=== PATIENT | male | born 1950 | race African-American/Black ===

== ENCOUNTER 2017-08-07 17:44 | Emergency (ER) | payer MEDICARE, BC ==
[2017-08-07] MEDS ORDERED: HYDROcodone/APAP 5/325MG 1 TAB TABLET PO (18:15)
[2017-08-07] MEDS: IBUPROFEN 800 MG TABLET. PO (18:30)
== END 2017-08-07 19:40 | disposition home or self-care (01) ==
LOC: ER 17:44
DX: M79.662 Pain in left lower leg (principal); M79.661 Pain in right lower leg; M79.1 Myalgia; E78.00 Pure hypercholesterolemia, unspecified; F17.210 Nicotine dependence, cigarettes, uncomplicated
CPT/HCPCS: 93970; 99284-25

== ENCOUNTER 2019-08-12 15:48 | Emergency (ER) | payer BC, MEDICARE ==
[~2019-08-12] VITALS: Ht 175.3 cm; Wt 59.0 kg
--- NOTE | 2019-08-12 15:56 | PHYS DOC ---
Past Medical History Past Medical History: Cancer, High Cholesterol Additional Past Medical Histor: Cancer of the stomach Past Surgical History: Cancer Surgery Additional Past Surgical Histo: partial stomach removal Smoking Status: Current Every Day Smoker Alcohol Use: Occasionally Drug Use: None General Adult HPI: HPI: 69-year-old male past medical history significant for hypertension, hyperlipidemia and alcohol abuse, presents to the ED with complaints of bilateral lower extremity "cramping" for the past 2 weeks to a month. EMS reports patient's house is her condition but patient told that he was outside for a while today. Pt reports sister called 911 because he "fell" forward due to the pain. Patient denies any recent alcohol or drug use including methamphetamine or cocaine. Denies blunt head injury/LOC. No prior history of DVT or PE, no recent hospitalization or surgery. Review of systems: Denies associated fever, chills, headache, neck stiffness, cough, dyspnea, cough, chest pain, nausea, vomiting, blurry vision, neurologic deficits, abdominal pain, back pain, unilateral leg swelling, rash. Review of Systems: Review of Systems: Constitutional: Denies fever or chills. [] Eyes: Denies change in visual acuity. [] HENT: Denies nasal congestion or sore throat. [] Respiratory: Denies cough or shortness of breath. [] Cardiovascular: Denies chest pain or edema. [] GI: Denies abdominal pain, nausea, vomiting, bloody stools or diarrhea. [] : Denies dysuria. [] Musculoskeletal: Denies back pain or joint pain. [] Integument: Denies rash. [] Neurologic: Denies headache, focal weakness or sensory changes. [] Endocrine: Denies polyuria or polydipsia. [] Lymphatic: Denies swollen glands. [] Psychiatric: Denies depression or anxiety. [] Allergies: Allergies: Allergies Coded Allergies Type Severity Reaction Last Updated Verified No Known Drug Allergies 03/31/13 No Physical Exam: PE: Constitutional: Well developed, well nourished, no acute distress, non-toxic appearance, thin, suspect intoxicated -no obvious smell HENT: Normocephalic, atraumatic, bilateral external ears normal, oropharynx moist, no oral exudates, nose normal, no signs of head trauma Eyes: PERRLA, EOMI, conjunctiva normal, no discharge. [] Neck: Normal range of motion, no tenderness, supple, no stridor. [] Cardiovascular:Heart rate regular rhythm, no murmur [] Lungs & Thorax: Bilateral breath sounds clear to auscultation [] Abdomen: Bowel sounds normal, soft, no tenderness, no masses, no pulsatile masses. [] Skin: Warm, dry, no erythema, no rash. [] Back: No tenderness, no CVA tenderness. [] Extremities: No tenderness, no cyanosis, no clubbing, ROM intact, no edema. [] Neurologic: Alert and oriented X 3, normal motor function, normal sensory function, no focal deficits noted. Psychologic: Affect normal, judgement normal, mood normal. [] EKG: EKG: [] Radiology/Procedures: Radiology/Procedures: [] Impression: Concern for bilateral calf cramps in the setting of alcohol intoxication with transaminitis (appropriate for alcohol abuse). Patient afebrile with no leukocytosis. Is hemodynamically stable. Has no signs of trauma or IQF-qjfn-waljhkstdix processes considered but are low suspicion at this time. Encouraged alcohol cessation, MV/folic acid and PMD follow-up. Patient with steady gait and medical decision-making capacity at time of discharge. Sister called and will pick pt up. Strict ED return precautions given for severe headaches or neurologic deficits. All patient's questions were answered and he was stable at time of discharge. Course & Med Decision Making: Course & Med Decision Making Pertinent Labs and Imaging studies reviewed. (See chart for details) [] Dragon Disclaimer: Dragon Disclaimer: This electronic medical record was generated, in whole or in part, using a voice recognition dictation system. Departure Departure Impression: Primary Impression: Muscle cramps Additional Impression: Alcohol intoxication Disposition: 01 HOME, SELF-CARE Condition: STABLE Referrals: NO PCP (PCP) Patient Instructions: Alcohol Intoxication, Muscle Cramps Justicifation of Admission Dx: Justifications for Admission: Justification of Admission Dx: N/A SANCHO FREIRE DO Aug 12, 2019 15:56
[2019-08-12] MEDS ORDERED: METHOCARBAMOL 750 MG TABLET PO PRN (16:00)
[2019-08-12 16:17] LABS: BASO % 1 % (0-3); EOS # 0.2 x10^3/uL (0.0-0.7); EOS % 6 % (0-3); HEMATOCRIT 40.7 % (39.0-53.0); HEMOGLOBIN 13.9 g/dL (13.0-17.5); LYMPH # 1.6 x10^3/uL (1.0-4.8); LYMPH % 47 % (24-48); MEAN CORPUSCULAR HEMOGLOBIN 32 pg (25-35); MEAN CORPUSCULAR HGB CONC 34 g/dL (31-37); MEAN CORPUSCULAR VOLUME 92 fL (79-100); MONO # 0.4 x10^3/uL (0.0-1.1); MONO % 11 % (0-9); NEUT # 1.2 x10^3/uL (1.8-7.7); NEUT % 35 % (31-73); PLATELET COUNT 115 x10^3/uL (140-400); RED BLOOD COUNT 4.42 x10^6/uL (4.30-5.70); WHITE BLOOD COUNT 3.4 x10^3/uL (4.0-11.0)
[2019-08-12 16:22] LABS: CALCIUM 8.2 mg/dL (8.5-10.1); CREATININE 1.3 mg/dL (0.7-1.3); GFR 66.6; POTASSIUM 4.3 mmol/L (3.5-5.1)
[2019-08-12 16:30] LABS: ALBUMIN 3.5 g/dL (3.4-5.0); ALBUMIN/GLOBULIN RATIO 0.7 (1.0-1.7); TOTAL BILIRUBIN 0.4 mg/dL (0.2-1.0); TOTAL PROTEIN 8.5 g/dL (6.4-8.2)
[2019-08-12 16:51] VITALS: BP 125/72
== END 2019-08-12 17:20 | disposition home or self-care (01) ==
LOC: ER 15:48
DX: R25.2 Cramp and spasm (principal); F10.229 Alcohol dependence with intoxication, unspecified; Y90.8 Blood alcohol level of 240 mg/100 ml or more; E78.00 Pure hypercholesterolemia, unspecified; E78.5 Hyperlipidemia, unspecified; I10 Essential (primary) hypertension; F17.200 Nicotine dependence, unspecified, uncomplicated
CPT/HCPCS: 36415; 80053; 82550; 85025; 99283; G0480

== ENCOUNTER 2020-04-02 10:43 | Day surgery (SDC) | payer MEDICARE ==
[~2020-04-02 10:43] MED LIST: AMLO-186 PO; ATOR40TA59 PO; BUPR150T7 PO; CHOL500050 PO; HYDROmorphone 2 MG/ML VIAL IVP PRN; IV RINGERS,LACTATED 1000ML 1,000 ML IV SCH; MORPHINE SULFATE 2 MG/ML VIAL. IVP PRN; PROCHLORPERAZINE 10 MG/2 ML VIAL. IVP PRN; fentaNYL PF VIAL 100 MCG/2 ML VIAL IVP PRN
[2020-04-02] MEDS ORDERED: GELATIN SPONGE SIZE 12-7MM SPONGE. ONE ×3 (11:14→11:18)
[2020-04-02] MEDS ORDERED: LIDOCAINE 2%/EPI 1:100,000 20 ML VIAL. ONE (11:18)
[2020-04-02] MEDS ORDERED: EPINEPHrine VIAL 30 MG/30 ML VIAL ONE (11:18)
[2020-04-02] MEDS ORDERED: fentaNYL PF VIAL 100 MCG/2 ML VIAL ONE (11:45)
[2020-04-02] MEDS ORDERED: LIDOCAINE 2% PF 5 ML VIAL. ONE (11:45)
[2020-04-02] MEDS ORDERED: PROPOFOL 10 MG/ML (20ML) VIAL. IV ONE ×2 (11:45→13:21)
[2020-04-02] MEDS ORDERED: DEXAMETHASONE SOD PHOS 4 MG/ML VIAL ONE ×3 (13:14→13:55)
[2020-04-02] MEDS ORDERED: SEVOFLURANE 16 TO 30 MINUTES. IH ONE (13:14)
[2020-04-02] MEDS ORDERED: ONDANSETRON PF 4 MG/2 ML VIAL. ONE (13:17)
[2020-04-02] MEDS ORDERED: PHENYLEPHRINE in 0.9% NACL PF 1 MG/10 ML SYRINGE. IV ONE (13:23)
[2020-04-02] MEDS ORDERED: GLYCOPYRROLATE 1 MG/5 ML VIAL. ONE (13:56)
--- NOTE | 2020-04-02 14:17 | PDOC4 ---
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 Venecia Elise Forest[employer] Biology Specialist none Anesthesiologist Dr. Ruth Anesthesia Type: General Blood Loss < 5mL Specimens Obtained right pyriform sinus-- frozen section confirmed SCCA; Right neck mass FNA slides Findings 1. Large 4 cm right neck mass, level 2; 2. Exophytic mass extending from medial aspect of right pyriform sinus superiorly, exophytic component hangs over airway, but not obstructive Complications none Operative Note Dictation #[id number] VENECIA ELISE MD Apr 02, 2020 14:17
[2020-04-02 14:41] VITALS: BP 160/85
--- NOTE | 2020-04-02 15:44 | OP ---
DATE OF SURGERY: 04/02/2020 PREOPERATIVE DIAGNOSIS: Right pyriform sinus mass and right neck mass. 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 PROCEDURE PERFORMED: Direct laryngoscopy with biopsy and fine needle aspiration of the right neck mass. SURGEON: Venecia Elise MD ANESTHESIA: General endotracheal anesthesia. INDICATIONS FOR SURGERY: The patient is a 69-year-old male with a significant smoking and alcohol history, who presented to the ENT clinic with a rapidly enlarging right neck mass. On fiberoptic laryngoscopy the patient was found to have an exophytic mass extending from the right pyriform sinus that was very concerning for malignancy. The decision was made with the patient to undergo the above procedure. After risks, benefits, and alternatives of surgery were thoroughly discussed with the patient and informed consent was obtained. INTRAOPERATIVE FINDINGS: 1. A large 4 cm right neck mass of the right level 2 area firmly attached to the sternocleidomastoid muscle. 2. An exophytic mass extending from the medial aspect of the right pyriform sinus superiorly, the exophytic component hangs over the airway, but does not extend onto the laryngeal surface of the aryepiglottic fold and is not obstructive of the airway. There was also normal mucosa in the inferior aspect of the pyriform sinus deep to the mass. DESCRIPTION OF THE PROCEDURE: The patient was brought back to room per Anesthesia and intubated with a GlideScope in a standard fashion. On visualization with the GlideScope, they were able to easily manipulate around the mass, but it was exophytic and hanging over the airway slightly on the right lateral aspect. The patient was then turned 90 degrees in the room after the airway was secured. The patient was placed in the sniffing position, on palpation of the base of tongue there was obvious mass. There was a 4 cm mass palpated in the right level 2 neck that was firmly affixed to the sternocleidomastoid musculature. I then used a Dedo laryngoscope to perform a direct laryngoscopy. The patient had normal-appearing mucosa along the oropharynx and base of tongue and epiglottis. The pyriform sinus on the right side had noted an exophytic mass extending from the pyriform surface of the aryepiglottic fold. This was exophytic and highly friable. Along the posterior and lateral border of the pyriform sinus there was normal-appearing mucosa and deep to the mass in the inferior aspect of the pyriform sinus mucosa was also normal in appearance. The postcricoid region also had normal appearance and on the left pyriform sinus had a completely normal in appearance. On visualization of the airway the true vocal cords and false vocal cords themselves were normal and appeared to be mobile, nonfixed. In the laryngeal surface of the aryepiglottic fold also had a normal overlying mucosa. A cup forceps was used to take multiple biopsies of the right medial pyriform sinus mass. I did use this to debulk especially the aspect medially that was extending over the airway to help prevent airway obstruction. These biopsies were taken and sent for frozen pathology and the Dedo laryngoscope was removed without any evidence of trauma to the gingiva. I then prepped the right neck in a standard fashion for fine needle aspiration using a 23-gauge needle, I took 3 passes into the right neck mass for a fine needle aspiration. These slides were then prepared and sent for the pathologist. On frozen section the pyriform sinus mass did confirm a squamous cell carcinoma and the patient's sister was notified at the end of the case of this new diagnosis. The patient was then turned back over to anesthesia after the frozen sections were returned. He was extubated without complication with minimal bleeding noted and no evidence of airway obstruction. Our sponge, needle, instrument counts correct at the end of the case. COMPLICATIONS: None. DISPOSITION: Stable and transferred to the recovery room. VENECIA ELISE MD DR: MEAGAN/patricia JOB#: [id number] / [id number] LJ
--- NOTE | 2020-04-06 14:11 | PATHOLOGY ---
Note [facility] Accession Number: [id number] TESTS RESULT FLAG UNITS REF RANGE LAB Clinician Provided Cytology Information No. of containers..01 Other (Miscellaneous) Source: [A] 01 RIGHT NECK MASS DIAGNOSIS: [A] 02 RIGHT NECK MASS POSITIVE FOR MALIGNANT CELLS. METASTATIC SQUAMOUS CELL CARCINOMA IS PRESENT. Signed out by: 02 Dank Vargas MD, Pathologist NPI- [id number] Performed by: Yohana Romero, Licensed Customs Broker ([facility]) Gross description: 01 3FX 3DQ /LCS 04/03/2020 0858 Local FLAG LEGEND: L-Low Normal,H-High Normal,LL-Alert Low,HH-Alert High <-Panic Low,>-Panic High,A-Abnormal,AA-Critical Abnormal Performed at: [address] [place] [address] Juaquin Baron MD, 02 [address] [address] [place] [address] Dank Vargas MD, Specimen Comment: A courtesy copy of this report has been sent to [phone] Specimen Comment: Report sent to Performed at: [address], [place], [place] [id number] MD Juaquin Baron MD Phone: [phone]
== END 2020-04-02 15:05 | disposition home or self-care (01) ==
LOC: SURG 10:43
PROVIDERS: ATTEND Otolaryngology
DX: R22.1 Localized swelling, mass and lump, neck (principal); D37.05 Neoplasm of uncertain behavior of pharynx; I10 Essential (primary) hypertension; E78.00 Pure hypercholesterolemia, unspecified; F17.210 Nicotine dependence, cigarettes, uncomplicated; Z20.828 Contact with and (suspected) exposure to other viral communicable diseases; Z79.899 Other long term (current) drug therapy; Z98.890 Other specified postprocedural states; Z72.89 Other problems related to lifestyle
CPT/HCPCS: 10021; 31535; 87426; C9803; J1100; J2370; J2405; J2704; J3010; J3490; U0003; J0171

== ENCOUNTER 2020-04-11 08:44 | Emergency (ER) | payer MEDICARE ==
[~2020-04-11] VITALS: Ht 175.3 cm; Wt 59.1 kg
[~2020-04-11 08:44] MED LIST changes: -HYDROmorphone 2 MG/ML VIAL IVP PRN; -IV RINGERS,LACTATED 1000ML 1,000 ML IV SCH; -MORPHINE SULFATE 2 MG/ML VIAL. IVP PRN; -PROCHLORPERAZINE 10 MG/2 ML VIAL. IVP PRN; -fentaNYL PF VIAL 100 MCG/2 ML VIAL IVP PRN
[2020-04-11] MEDS ORDERED: IV NORMAL SALINE 1000ML BAG 1,000 ML IV ONE ×2 (09:15→11:30)
[2020-04-11 10:09] LABS: BASO # 0.1 x10^3/uL (0.0-0.2); BASO % 1 % (0-3); EOS # 0.3 x10^3/uL (0.0-0.7); EOS % 6 % (0-3); HEMATOCRIT 42.9 % (39.0-53.0); HEMOGLOBIN 14.4 g/dL (13.0-17.5); LYMPH # 2.2 x10^3/uL (1.0-4.8); LYMPH % 51 % (24-48); MEAN CORPUSCULAR HEMOGLOBIN 31 pg (25-35); MEAN CORPUSCULAR HGB CONC 34 g/dL (31-37); MEAN CORPUSCULAR VOLUME 92 fL (79-100); MONO # 0.3 x10^3/uL (0.0-1.1); MONO % 8 % (0-9); NEUT # 1.4 x10^3/uL (1.8-7.7); NEUT % 33 % (31-73); PLATELET COUNT 241 x10^3/uL (140-400); RED BLOOD COUNT 4.66 x10^6/uL (4.30-5.70); RED CELL DISTRIBUTION WIDTH 16.4 % (11.5-14.5); WHITE BLOOD COUNT 4.3 x10^3/uL (4.0-11.0)
[2020-04-11 10:16] LABS: CREATININE 1.1 mg/dL (0.7-1.3); GFR 80.8; POTASSIUM 4.3 mmol/L (3.5-5.1)
[2020-04-11 10:21] LABS: ALBUMIN 3.5 g/dL (3.4-5.0); ALBUMIN/GLOBULIN RATIO 0.6 (1.0-1.7); TOTAL BILIRUBIN 0.3 mg/dL (0.2-1.0)
[2020-04-11 10:59] LABS: BILIRUBIN,URINE NEGATIVE (NEG); CLARITY,URINE CLEAR; COLOR,URINE YELLOW; NITRITE,URINE NEGATIVE (NEG); PH,URINE 5.5 (<5.0-8.0); PROTEIN,URINE NEGATIVE (NEG-TRACE); UROBILINOGEN,URINE 0.2 mg/dL (0.2 mg/dL)
[2020-04-11] MEDS ORDERED: IOHEXOL 300 MG/ML 100ML VIAL. IV ONE (11:00)
[2020-04-11 11:04] LABS: BARBITURATES NEG (NEG); BENZODIAZEPINES NEG (NEG); CANNABINOIDS NEG (NEG); COCAINE NEG (NEG); METHADONE NEG (NEG); OPIATES NEG (NEG); PHENCYCLIDINE NEG (NEG)
[2020-04-11 11:09] LABS: AMPHETAMINE/METHAMPHETAMINE NEG (NEG)
--- NOTE | 2020-04-11 11:24 | RAD ---
CT neck with contrast. HISTORY: Right-sided neck mass, trouble swallowing CT scan the neck was done using 70 mL Omnipaque 300 contrast. Sagittal and coronal reconstructed imag es were reviewed. The esophagus is distended with an fluid-filled. The distal esophagus was not evalu ated. There are emphysematous changes in the lungs in the upper lobes. There is mucous in the trachea . Thyroid is homogeneous, there is a tiny 4 mm nodule in the lower thyroid, no further follow-up is w arranted. There is soft tissue fullness or soft tissue mass at the right piriform sinus. There is a large right neck mass consistent with an enlarged lymph node behind the submandibular gla nd medial to the sternocleidomastoid muscle measuring 4.5 x 3 cm. Metastatic head and neck cancer is possible. Lymphoma could have this pattern although the mass is somewhat heterogeneous for a typical lymphoma. Parotid and submandibular glands are unremarkable. Orbits are unremarkable. Sinuses are maria del rosario ar. There are degenerative changes in the cervical spine with degenerative disc disease at several le vels and hypertrophic spurring. There is no acute C-spine fracture. There is mild plaque at the proxi mal carotid artery on the right without significant stenosis. There is mild stenosis of the proximal internal carotid artery on the left. IMPRESSION: 1. Soft tissue mass at the piriform sinus more on the right than on the left. 2. Large mass or enlarged lymph node in the right neck possibly related to metastatic head and neck c ancer, biopsy recommended. 3. Extensive degenerative change in the cervical spine. 4. Distended esophagus, evaluation of the distal esophagus recommended to exclude an esophageal obstr ucting lesion. PQRS Compliance Statement: One or more of the following individualized dose reduction techniques were utilized for this examinat ion: 1. Automated exposure control 2. Adjustment of the mA and/or kV according to patient size 3. Use of iterative reconstruction technique Electronically signed by: Oleksandr Cox MD (04/11/2020 11:22 AM) [facility]
[2020-04-11 11:36] LABS: BACTERIA,URINE 0 /HPF (0-FEW); RBC,URINE 0 /HPF (0-2); WBC,URINE 0 /HPF (0-4)
[2020-04-11 12:14] VITALS: BP 139/67
--- NOTE | 2020-04-11 12:17 | RAD ---
Three-view acute abdominal series. HISTORY: Nausea, vomiting 3 views were taken for an acute abdominal series. Lungs are free of acute infiltrates. Heart is delon l in size. There is blunting of the right costophrenic angle from mild atelectasis or a small pleural effusion. There is no free air on the upright view the abdomen. There are no abnormal air-fluid levels. There i s contrast in the renal collecting systems from the CT neck. There is no dilatation of the renal radha ecting systems. The bladder is mildly distended. There is moderate stool in the right colon. There is no small bowel obstruction. There is mild distention of the colon. IMPRESSION: 1. Possible small right pleural effusion or pleural thickening at the right costophrenic angle. 2. No acute infiltrates in the lungs. 3. Distended bladder. 4. Mild distention of the colon with moderate stool right colon. 5. No small bowel obstruction noted. Electronically signed by: Oleksandr Cox MD (04/11/2020 12:15 PM) [facility]
--- NOTE | 2020-04-11 12:33 | PHYS DOC ---
Past Medical History Past Medical History: Cancer, High Cholesterol, Hypertension Additional Past Medical Histor: Cancer of the stomach AND THROAT Past Surgical History: Cancer Surgery Additional Past Surgical Histo: partial stomach removal Smoking Status: Current Every Day Smoker Alcohol Use: Occasionally Drug Use: None General Adult EDM: Chief Complaint: NECK PAIN HPI: HPI: Patient is a 69 year old male who was brought here from home due to right-sided neck pain. 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 Patient had a biopsy done on April 02, [address] Venecia Bhatti. He was scheduled for PET scan yesterday but he missed the appointment because he was intoxicated. Patient admitted of drinking today as well. Patient denied headache, no trouble swallowing, no no abdominal pain, no nausea vomiting. Review of Systems: Review of Systems: Constitutional: Denies fever or chills. [] Eyes: Denies change in visual acuity. [] HENT: Positive for right-sided neck pain Respiratory: Denies cough or shortness of breath. [] Cardiovascular: Denies chest pain or edema. [] GI: Denies abdominal pain, nausea, vomiting, bloody stools or diarrhea. [] : Denies dysuria. [] Musculoskeletal: Denies back pain or joint pain. [] Integument: Denies rash. [] Neurologic: Denies headache, focal weakness or sensory changes. [] Endocrine: Denies polyuria or polydipsia. [] Lymphatic: Denies swollen glands. [] Psychiatric: Denies depression or anxiety. [] Heart Score: Risk Factors: Risk Factors: DM, Current or recent (<one month) smoker, HTN, HLP, family history of CAD, obesity. Risk Scores: Score 0 - 3: 2.5% MACE over next 6 weeks - Discharge Home Score 4 - 6: 20.3% MACE over next 6 weeks - Admit for Clinical Observation Score 7 - 10: 72.7% MACE over next 6 weeks - Early Invasive Strategies Current Medications: Current Medications Medications (Trade) Dose Ordered Sig/Jose Start Time Stop Time Status Last Admin Dose Admin Iohexol (Omnipaque 300 Mg/ml) 70 ml 1X ONCE 04/11/20 11:00 04/11/20 11:01 DC 04/11/20 11:03 70 ML Sodium Chloride 1,000 ml @ 1,000 mls/hr 1X ONCE 04/11/20 11:30 04/11/20 12:29 DC 04/11/20 11:57 1,000 MLS/HR Allergies: Allergies: Allergies Coded Allergies Type Severity Reaction Last Updated Verified No Known Drug Allergies 04/02/20 No Physical Exam: PE: Constitutional: Well developed, well nourished, no acute distress, non-toxic appearance. [] HENT: Normocephalic, atraumatic, bilateral external ears normal, oropharynx moist, no oral exudates, nose normal. THERE IS GOLF BALL SIZE MASS ON RIGHT ANTERIOR NECK, TRACHEA IS MIDLINE. NO THROAT SWELLING. No trismus. Eyes: PERRLA, EOMI, conjunctiva normal, no discharge. [] Neck: Normal range of motion, no tenderness, supple, no stridor. [] Cardiovascular:Heart rate regular rhythm, no murmur [] Lungs & Thorax: Bilateral breath sounds clear to auscultation [] Abdomen: Bowel sounds normal, soft, no tenderness, no masses, no pulsatile masses. [] Skin: Warm, dry, no erythema, no rash. [] Back: No tenderness, no CVA tenderness. [] Extremities: No tenderness, no cyanosis, no clubbing, ROM intact, no edema. [] Neurologic: Alert and oriented X 3, normal motor function, normal sensory function, no focal deficits noted. [] Psychologic: Affect normal, judgement normal, mood normal. [] Current Patient Data: Labs: Laboratory Tests Test 04/11/20 09:35 04/11/20 10:45 White Blood Count 4.3 x10^3/uL (4.0-11.0) Red Blood Count 4.66 x10^6/uL (4.30-5.70) Hemoglobin 14.4 g/dL (13.0-17.5) Hematocrit 42.9 % (39.0-53.0) Mean Corpuscular Volume 92 fL (79-100) Mean Corpuscular Hemoglobin 31 pg (25-35) Mean Corpuscular Hemoglobin Concent 34 g/dL (31-37) Red Cell Distribution Width 16.4 % (11.5-14.5) H Platelet Count 241 x10^3/uL (140-400) Neutrophils (%) (Auto) 33 % (31-73) Lymphocytes (%) (Auto) 51 % (24-48) H Monocytes (%) (Auto) 8 % (0-9) Eosinophils (%) (Auto) 6 % (0-3) H Basophils (%) (Auto) 1 % (0-3) Neutrophils # (Auto) 1.4 x10^3/uL (1.8-7.7) L Lymphocytes # (Auto) 2.2 x10^3/uL (1.0-4.8) Monocytes # (Auto) 0.3 x10^3/uL (0.0-1.1) Eosinophils # (Auto) 0.3 x10^3/uL (0.0-0.7) Basophils # (Auto) 0.1 x10^3/uL (0.0-0.2) Sodium Level 143 mmol/L (136-145) Potassium Level 4.3 mmol/L (3.5-5.1) Chloride Level 103 mmol/L (98-107) Carbon Dioxide Level 28 mmol/L (21-32) Anion Gap 12 (6-14) Blood Urea Nitrogen 13 mg/dL (8-26) Creatinine 1.1 mg/dL (0.7-1.3) Estimated GFR (Cockcroft-Gault) 80.8 BUN/Creatinine Ratio 12 (6-20) Glucose Level 88 mg/dL (70-99) Calcium Level 9.0 mg/dL (8.5-10.1) Total Bilirubin 0.3 mg/dL (0.2-1.0) Aspartate Amino Transferase (AST) 67 U/L (15-37) H Alanine Aminotransferase (ALT) 41 U/L (16-63) Alkaline Phosphatase 93 U/L (46-116) Total Protein 9.0 g/dL (6.4-8.2) H Albumin 3.5 g/dL (3.4-5.0) Albumin/Globulin Ratio 0.6 (1.0-1.7) L Ethyl Alcohol Level 354 mg/dL (0-10) H Urine Collection Type Unknown Urine Color Yellow Urine Clarity Clear Urine pH 5.5 (<5.0-8.0) Urine Specific Marion 1.010 (1.000-1.030) Urine Protein Negative mg/dL (NEG-TRACE) Urine Glucose (UA) Negative mg/dL (NEG) Urine Ketones (Stick) Negative mg/dL (NEG) Urine Blood Negative (NEG) Urine Nitrite Negative (NEG) Urine Bilirubin Negative (NEG) Urine Urobilinogen Dipstick 0.2 mg/dL (0.2 mg/dL) Urine Leukocyte Esterase Negative (NEG) Urine RBC 0 /HPF (0-2) Urine WBC 0 /HPF (0-4) Urine Squamous Epithelial Cells Few /LPF Urine Bacteria 0 /HPF (0-FEW) Urine Opiates Screen Neg (NEG) Urine Methadone Screen Neg (NEG) Urine Barbiturates Neg (NEG) Urine Phencyclidine Screen Neg (NEG) Urine Amphetamine/Methamphetamine Neg (NEG) Urine Benzodiazepines Screen Neg (NEG) Urine Cocaine Screen Neg (NEG) Urine Cannabinoids Screen Neg (NEG) Urine Ethyl Alcohol Pos (NEG) Laboratory Tests 04/11/20 09:35 Laboratory Tests 04/11/20 09:35 Vital Signs: Vital Signs Date Time Temp Pulse Resp B/P (MAP) Pulse Ox O2 Delivery O2 Flow Rate FiO2 04/11/20 08:49 97.9 60 16 135/67 (89) 94 Room Air 97.9 EKG: EKG: [] Radiology/Procedures: Radiology/Procedures: [] [facility] [address] [place] [address] IMAGING REPORT Signed PATIENT: SHAMA MORAN ACCOUNT: [id number] : 1950 LOCATION: ER AGE: 69 SEX: M EXAM STATUS: REG ER ORD. PHYSICIAN: BRETT RIVERA DO REASON: RIGHT SIDE NECK MASS, PAIN, TROUBLE SWALLOWING PROCEDURE: CT SOFT TISSUE NECK W/CONTRAST CT neck with contrast. HISTORY: Right-sided neck mass, trouble swallowing CT scan the neck was done using 70 mL Omnipaque 300 contrast. Sagittal and coronal reconstructed images were reviewed. The esophagus is distended with an fluid-filled. The distal esophagus was not evaluated. There are emphysematous changes in the lungs in the upper lobes. There is mucous in the trachea. Thyroid is homogeneous, there is a tiny 4 mm nodule in the lower thyroid, no further follow-up is warranted. There is soft tissue fullness or soft tissue mass at the right piriform sinus. There is a large right neck mass consistent with an enlarged lymph node behind the submandibular gland medial to the sternocleidomastoid muscle measuring 4.5 x 3 cm. Metastatic head and neck cancer is possible. Lymphoma could have this pattern although the mass is somewhat heterogeneous for a typical lymphoma. Parotid and submandibular glands are unremarkable. Orbits are unremarkable. Sinuses are clear. There are degenerative changes in the cervical spine with degenerative disc disease at several levels and hypertrophic spurring. There is no acute C-spine fracture. There is mild plaque at the proximal carotid artery on the right without significant stenosis. There is mild stenosis of the pro ximal internal carotid artery on the left. IMPRESSION: 1. Soft tissue mass at the piriform sinus more on the right than on the left. 2. Large mass or enlarged lymph node in the right neck possibly related to metastatic head and neck cancer, biopsy recommended. 3. Extensive degenerative change in the cervical spine. 4. Distended esophagus, evaluation of the distal esophagus recommended to exclude an esophageal obstructing lesion. RS Compliance Statement: One or more of the following individualized dose reduction techniques were utilized for this examination: 1. Automated exposure control 2. Adjustment of the mA and/or kV according to patient size 3. Use of iterative reconstruction technique Electronically signed by: Oleksandr Cox MD (04/11/2020 11:22 AM) [facility] DICTATED and SIGNED BY: OLEKSANDR COX MD DATE: 04/11/20 [id number] [facility] [address] [place] [address] IMAGING REPORT Signed PATIENT: SHAMA MORAN ACCOUNT: [id number] : 1950 LOCATION: ER AGE: 69 SEX: M EXAM STATUS: REG ER ORD. PHYSICIAN: BRETT RIVERA DO REASON: NAUSEA, VOMITING PROCEDURE: ACUTE ABDOMEN SERIES Three-view acute abdominal series. HISTORY: Nausea, vomiting 3 views were taken for an acute abdominal series. Lungs are free of acute infiltrates. Heart is normal in size. There is blunting of the right costophreni c angle from mild atelectasis or a small pleural effusion. There is no free air on the upright view the abdomen. There are no abnormal air- fluid levels. There is contrast in the renal collecting systems from the CT neck. There is no dilatation of the renal collecting systems. The bladder is mildly distended. There is moderate stool in the right colon. There is no small bowel obstruction. There is mild distention of the colon. IMPRESSION: 1. Possible small right pleural effusion or pleural thickening at the right costophrenic angle. 2. No acute infiltrates in the lungs. 3. Distended bladder. 4. Mild distention of the colon with moderate stool right colon. 5. No small bowel obstruction noted. Electronically signed by: Oleksandr Cox MD (04/11/2020 12:15 PM) [facility] DICTATED and SIGNED BY: OLEKSANDR COX MD DATE: 04/11/20 [id number] 0 Course & Med Decision Making: Course & Med Decision Making Pertinent Labs and Imaging studies reviewed. (See chart for details) Patient is a 69-year-old male who was brought here by EMS from home due to right-sided neck pain due to recently diagnosed neck cancer. CT scan head neck today did not show any evidence of airway obstruction. Patient had no nausea or vomiting, no abdominal pain, no evidence of bowel obstruction. Patient acutely intoxicated, his alcohol level was high. Patient will need to follow-up with his ENT doctor in his oncology for further evaluation and treatment. Patient's sister came here and took him home. Arturo Disclaimer: Arturo Disclaimer: This electronic medical record was generated, in whole or in part, using a voice recognition dictation system. Departure Departure Impression: Primary Impression: Neck malignant neoplasm Additional Impression: Alcohol intoxication Disposition: 01 DC HOME SELF CARE/HOMELESS Condition: STABLE Referrals: ANEUDY SHORT (PCP) VENECIA BHATTI MD Please call your ENT DOCTOR for follow up next week Patient Instructions: Alcohol Intoxication BRETT RIVERA DO Apr 11, 2020 12:33
== END 2020-04-11 13:03 | disposition home or self-care (01) ==
LOC: ER 08:44
DX: C76.0 Malignant neoplasm of head, face and neck (principal); F10.20 Alcohol dependence, uncomplicated; Y90.8 Blood alcohol level of 240 mg/100 ml or more; E78.00 Pure hypercholesterolemia, unspecified; I10 Essential (primary) hypertension; F17.200 Nicotine dependence, unspecified, uncomplicated
CPT/HCPCS: 36415; 70491; 74022; 80053; 80307; 81001; 85025; 96360; 96361; 99285; G0480; J7030; Q9967

== ENCOUNTER 2020-04-15 09:07 | Outpatient (CLI) | payer MEDICARE ==
[~2020-04-15] VITALS: Ht 175.3 cm; Wt 59.0 kg
[2020-04-15] MEDS ORDERED: LIDOCAINE WITH 8.4% SOD BICARB 3 ML DISP.SYRIN. ONE (09:19)
[2020-04-15 09:23] VITALS: BP 111/70
[2020-04-15 10:13] VITALS: BP 169/66
[2020-04-15] MEDS ORDERED: LIDOCAINE WITH 8.4% SOD BICARB 3 ML DISP.SYRIN. IJ ONE (10:45)
--- NOTE | 2020-04-15 11:08 | NUR ---
RU arm PICC line intact. Discharge instructions reviewed with pt. Pt home with family
--- NOTE | 2020-04-16 08:01 | RAD ---
Exam: Fluoroscopic and ultrasound guided right percutaneous inserted central venous catheter placement 04/16/2020 5:57 AM .Indication: METASTATIC SQUAMOUS CELL CARCINOMA Technique: Informed oral and written consent were obtained. The right upper extremity was prepped and draped using sterile barrier technique. All elements of maximal sterile barrier technique including the use of a cap, mask, sterile gown, sterile gloves, large sterile sheet, appropriate hand hygiene, and 2% chlorhexidine for cutaneous antisepsis (or acceptable alternative antiseptic per current guidelines) were followed for this procedure.. Real-time ultrasound demonstrated a patent right basilic vein which was prepped and draped in usual sterile fashion. 1% lidocaine used for local anesthesia. Using real-time ultrasound guidance the access needle percutaneously punctured the selected right basilic vein. Reference ultrasound images were saved to the medical record. A guidewire was advanced through the needle to the cavoatrial junction, and a peel-away sheath placed. The catheter was cut to length and inserted through the peel-away sheath such that its tip is at the cavoatrial junction. The wire and sheath were removed, and the catheter secured in place, and a sterile dressing was applied. Catheter was found to flush and aspirate normally. No immediate complications are identified. FLUORO TIME: 0.6 min DOSE AREA PRODUCT: 0.6 Gycm2 Impression: Ultrasound and fluoroscopically guided placement of a right upper extremity PICC line.
== END 2020-04-15 11:31 | disposition home or self-care (01) ==
LOC: INTRAD 09:07
PROVIDERS: ATTEND Internal Medicine Hematology & Oncology
DX: Z45.2 Encounter for adjustment and management of vascular access device (principal); C12 Malignant neoplasm of pyriform sinus; C79.89 Secondary malignant neoplasm of other specified sites
CPT/HCPCS: 36573; C1751; C1892; J3490; 77001

== ENCOUNTER → 2020-04-17 | Outpatient (CLI) | payer MEDICARE ==
[2020-04-15 10:13] VITALS: BP 169/66
--- NOTE | 2020-04-17 15:38 | RAD ---
EXAM: NM PET/CT SKULL BASE TO MID THIGH EXAM DATE: 04/17/2020 INDICATION: Reason: malignant neoplasm of pyriform sinus. History of gastric cancer status post surge ry 2004. RADIOPHARMACEUTICAL: 13.52 mCi of F-18 Fluorodeoxyglucose (FDG) I.V. via the right PICC line. TECHNIQUE: Patient weight: 130 pounds. Following at least four-hour fasting, the patient's blood gluc ose was 119 mg/dl. Approximately an hour and a half after administration of FDG, overlapping emissio n scanning was performed from the top of the head through the proximal thighs.. A low-dose CT was pe rformed for attenuation correction purposes and anatomic localization. Fused images of PET and CT wer e reviewed. Any standardized uptake values (SUV) reported are maximum values within a volume region of interest, expressed in gm/ml. COMPARISON: Soft tissue neck CT of 04/11/2020 FINDINGS: PET: In the head and neck, masslike soft tissue in the right piriform sinus shows abnormal FDG uptake to a max SUV of 14.4. The heterogeneously enhancing right neck mass seen on prior CT shows abnormal FDG u ptake to max SUV of 18.7, compatible with bulky metastatic right level 2 adelaide disease with extracaps ular spread. There is also left-sided abnormal FDG uptake corresponding to a centrally hypodense left level 2 cervical lymph node on the comparison exam (image 54 series 2 on the prior study, and image 113 of series 3 on the current study). This shows a max SUV of 4.4. In the chest, no abnormal FDG uptake is apparent. In the abdomen and pelvis, there is a loop of bowel in the midabdomen that shows increased FDG uptake to a max SUV of 7.3. Otherwise, no abnormal uptake in the abdomen, including a 3.5 cm left renal cys t. In the pelvis, distal rectal wall thickening is present with left-sided low rectal wall FDG uptake to max SUV of 18.0. CT: Noncontrast CT shows no abnormal findings intracranially. In addition to the bulky right neck mass compatible with bulky right cervical adelaide metastatic diseas e, arterial calcifications in the carotid arteries bilaterally are noted and there is abnormal soft t issue fullness in the right piriform sinus, consistent with known tumor. CT of the chest shows moderate centrilobular emphysema and surgical changes from an esophagectomy wit h gastric pull-up. The heart is normal in size and multivessel coronary calcifications are present. Abdomen and pelvis show abdominal aortic calcifications without aneurysmal dilation. No acute finding s. No ascites or mass and no adenopathy. The area of uptake in the abdomen on PET imaging appears to correlate with a loop of small bowel that otherwise is unremarkable on this noncontrast CT study. No abdominal or pelvic adenopathy and no masses are seen. Solid abdominal organs show a 2.6 cm dense lef t renal mass with Hounsfield units measuring 35. This is compatible with a hemorrhagic renal cyst. IMPRESSION: Hypermetabolic right piriform sinus mass associated with bilateral level 2 cervical adelaide metastatic disease, the bulky right neck node mass showing morphologic features compatible with extracapsular ex tension. No definite findings for distant metastatic disease although focus of uptake in the midabdom en associated with a small bowel loop is of uncertain significance. Contrast enhanced abdomen and pel vis CT with oral contrast could be pursued in further evaluation if clinically warranted.. Electronically signed by: Ana Laura Graf MD (04/17/2020 3:36 PM) [id number]
== END ==
LOC: PETSC 08:29
PROVIDERS: ATTEND Otolaryngology
DX: C12 Malignant neoplasm of pyriform sinus (principal); C79.89 Secondary malignant neoplasm of other specified sites; J43.2 Centrilobular emphysema; I70.0 Atherosclerosis of aorta; N28.89 Other specified disorders of kidney and ureter; I65.23 Occlusion and stenosis of bilateral carotid arteries; I25.10 Atherosclerotic heart disease of native coronary artery without angina pectoris; Z85.028 Personal history of other malignant neoplasm of stomach
CPT/HCPCS: 78815; A9552

== ENCOUNTER → 2020-04-23 | Outpatient (CLI) | payer MEDICARE ==
[2020-04-15 10:13] VITALS: BP 169/66
[2020-04-23 10:19] LABS: BASO % 0 % (0-3); EOS # 0.1 x10^3/uL (0.0-0.7); EOS % 3 % (0-3); HEMOGLOBIN 11.1 g/dL (13.0-17.5); LYMPH # 1.1 x10^3/uL (1.0-4.8); LYMPH % 28 % (24-48); MEAN CORPUSCULAR HEMOGLOBIN 30 pg (25-35); MEAN CORPUSCULAR HGB CONC 33 g/dL (31-37); MEAN CORPUSCULAR VOLUME 93 fL (79-100); MONO # 0.5 x10^3/uL (0.0-1.1); MONO % 12 % (0-9); NEUT # 2.2 x10^3/uL (1.8-7.7); NEUT % 57 % (31-73); PLATELET COUNT 101 x10^3/uL (140-400); RED BLOOD COUNT 3.67 x10^6/uL (4.30-5.70); RED CELL DISTRIBUTION WIDTH 17.2 % (11.5-14.5); WHITE BLOOD COUNT 3.9 x10^3/uL (4.0-11.0)
[2020-04-23 10:28] LABS: CALCIUM 8.5 mg/dL (8.5-10.1); CREATININE 0.9 mg/dL (0.7-1.3); GFR 101.5; POTASSIUM 3.5 mmol/L (3.5-5.1)
[2020-04-23 10:35] LABS: ALBUMIN/GLOBULIN RATIO 0.6 (1.0-1.7); TOTAL BILIRUBIN 0.6 mg/dL (0.2-1.0); TOTAL PROTEIN 7.9 g/dL (6.4-8.2)
[2020-04-23 10:42] LABS: FREE T4 1.3 ng/dL (0.76-1.46); THYROID STIM HORMONE (TSH) 1.111 uIU/mL (0.358-3.74)
== END ==
LOC: ONCLAB 09:26
PROVIDERS: ATTEND Physician Assistant
DX: C12 Malignant neoplasm of pyriform sinus (principal); E89.0 Postprocedural hypothyroidism
CPT/HCPCS: 80053; 82607; 82746; 83615; 83921; 84439; 84443; 85025

== ENCOUNTER → 2020-04-30 | Outpatient (CLI) | payer MEDICARE ==
[2020-04-15 10:13] VITALS: BP 169/66
[~2020-04-30] MED LIST changes: +BUPR150T21 PO; -BUPR150T7 PO
[2020-04-30 11:57] LABS: BASO % 0 % (0-3); EOS # 0.1 x10^3/uL (0.0-0.7); EOS % 3 % (0-3); HEMATOCRIT 30.6 % (39.0-53.0); HEMOGLOBIN 10.4 g/dL (13.0-17.5); LYMPH # 1.1 x10^3/uL (1.0-4.8); LYMPH % 28 % (24-48); MEAN CORPUSCULAR HEMOGLOBIN 31 pg (25-35); MEAN CORPUSCULAR HGB CONC 34 g/dL (31-37); MEAN CORPUSCULAR VOLUME 93 fL (79-100); MONO # 0.4 x10^3/uL (0.0-1.1); MONO % 10 % (0-9); NEUT # 2.2 x10^3/uL (1.8-7.7); NEUT % 59 % (31-73); PLATELET COUNT 285 x10^3/uL (140-400); RED CELL DISTRIBUTION WIDTH 16.2 % (11.5-14.5); WHITE BLOOD COUNT 3.8 x10^3/uL (4.0-11.0)
[2020-04-30 12:07] LABS: CALCIUM 8.3 mg/dL (8.5-10.1); CREATININE 0.9 mg/dL (0.7-1.3); GFR 101.5; POTASSIUM 3.6 mmol/L (3.5-5.1)
[2020-04-30 12:12] LABS: ALBUMIN 2.6 g/dL (3.4-5.0); ALBUMIN/GLOBULIN RATIO 0.6 (1.0-1.7); TOTAL BILIRUBIN 0.4 mg/dL (0.2-1.0); TOTAL PROTEIN 7.3 g/dL (6.4-8.2)
== END ==
LOC: ONCLAB 11:17
PROVIDERS: ATTEND Internal Medicine Hematology & Oncology
DX: C12 Malignant neoplasm of pyriform sinus (principal)
CPT/HCPCS: 36415; 80053; 85025

== ENCOUNTER → 2020-05-05 | Outpatient (CLI) | payer MEDICARE ==
[2020-04-15 10:13] VITALS: BP 169/66
[2020-05-05 10:30] LABS: BASO % 1 % (0-3); EOS # 0.1 x10^3/uL (0.0-0.7); EOS % 2 % (0-3); HEMATOCRIT 31.7 % (39.0-53.0); HEMOGLOBIN 10.5 g/dL (13.0-17.5); LYMPH % 26 % (24-48); MEAN CORPUSCULAR HEMOGLOBIN 31 pg (25-35); MEAN CORPUSCULAR HGB CONC 33 g/dL (31-37); MEAN CORPUSCULAR VOLUME 92 fL (79-100); MONO # 0.4 x10^3/uL (0.0-1.1); MONO % 11 % (0-9); NEUT # 2.2 x10^3/uL (1.8-7.7); NEUT % 59 % (31-73); PLATELET COUNT 292 x10^3/uL (140-400); RED BLOOD COUNT 3.44 x10^6/uL (4.30-5.70); RED CELL DISTRIBUTION WIDTH 16.3 % (11.5-14.5); WHITE BLOOD COUNT 3.7 x10^3/uL (4.0-11.0)
[2020-05-05 11:07] LABS: CALCIUM 8.5 mg/dL (8.5-10.1); GFR 89.9; POTASSIUM 3.4 mmol/L (3.5-5.1)
[2020-05-05 11:33] LABS: ALBUMIN 2.8 g/dL (3.4-5.0); ALBUMIN/GLOBULIN RATIO 0.6 (1.0-1.7); TOTAL BILIRUBIN 0.3 mg/dL (0.2-1.0); TOTAL PROTEIN 7.7 g/dL (6.4-8.2)
== END ==
LOC: ONCLAB 10:01
PROVIDERS: ATTEND Internal Medicine Hematology & Oncology
DX: C12 Malignant neoplasm of pyriform sinus (principal)
CPT/HCPCS: 36415; 80053; 85025

== ENCOUNTER → 2020-05-14 | Outpatient (CLI) | payer MEDICARE ==
[2020-04-15 10:13] VITALS: BP 169/66
[2020-05-14 09:09] LABS: BASO % 1 % (0-3); EOS # 0.1 x10^3/uL (0.0-0.7); EOS % 2 % (0-3); HEMATOCRIT 34.4 % (39.0-53.0); HEMOGLOBIN 11.4 g/dL (13.0-17.5); LYMPH # 0.5 x10^3/uL (1.0-4.8); LYMPH % 13 % (24-48); MEAN CORPUSCULAR HEMOGLOBIN 30 pg (25-35); MEAN CORPUSCULAR HGB CONC 33 g/dL (31-37); MEAN CORPUSCULAR VOLUME 92 fL (79-100); MONO # 0.3 x10^3/uL (0.0-1.1); MONO % 7 % (0-9); NEUT # 2.9 x10^3/uL (1.8-7.7); NEUT % 78 % (31-73); PLATELET COUNT 191 x10^3/uL (140-400); RED BLOOD COUNT 3.74 x10^6/uL (4.30-5.70); RED CELL DISTRIBUTION WIDTH 16.7 % (11.5-14.5); WHITE BLOOD COUNT 3.7 x10^3/uL (4.0-11.0)
[2020-05-14 09:16] LABS: CALCIUM 8.4 mg/dL (8.5-10.1); GFR 89.9; POTASSIUM 3.9 mmol/L (3.5-5.1)
[2020-05-14 09:22] LABS: ALBUMIN 2.9 g/dL (3.4-5.0); ALBUMIN/GLOBULIN RATIO 0.6 (1.0-1.7); TOTAL BILIRUBIN 0.6 mg/dL (0.2-1.0); TOTAL PROTEIN 7.9 g/dL (6.4-8.2)
== END ==
LOC: ONCLAB 08:23
PROVIDERS: ATTEND Internal Medicine Hematology & Oncology
DX: C12 Malignant neoplasm of pyriform sinus (principal); F10.20 Alcohol dependence, uncomplicated; Z79.899 Other long term (current) drug therapy
CPT/HCPCS: 36415; 80053; 85025; G0480

== ENCOUNTER → 2020-05-21 | Outpatient (CLI) | payer MEDICARE ==
[2020-05-21 09:34] LABS: BASO % 2 % (0-3); EOS % 3 % (0-3); HEMATOCRIT 29.8 % (39.0-53.0); HEMOGLOBIN 9.9 g/dL (13.0-17.5); LYMPH # 0.3 x10^3/uL (1.0-4.8); LYMPH % 22 % (24-48); MEAN CORPUSCULAR HEMOGLOBIN 31 pg (25-35); MEAN CORPUSCULAR HGB CONC 33 g/dL (31-37); MEAN CORPUSCULAR VOLUME 92 fL (79-100); MONO # 0.3 x10^3/uL (0.0-1.1); MONO % 20 % (0-9); NEUT # 0.8 x10^3/uL (1.8-7.7); NEUT % 54 % (31-73); PLATELET COUNT 142 x10^3/uL (140-400); RED BLOOD COUNT 3.24 x10^6/uL (4.30-5.70); RED CELL DISTRIBUTION WIDTH 16.6 % (11.5-14.5)
[2020-05-21 09:38] LABS: WHITE BLOOD COUNT 1.4 x10^3/uL (4.0-11.0)
[2020-05-21 09:50] LABS: CALCIUM 8.5 mg/dL (8.5-10.1); GFR 89.9; POTASSIUM 3.9 mmol/L (3.5-5.1)
[2020-05-21 09:56] LABS: ALBUMIN 2.7 g/dL (3.4-5.0); ALBUMIN/GLOBULIN RATIO 0.6 (1.0-1.7); TOTAL BILIRUBIN 0.5 mg/dL (0.2-1.0); TOTAL PROTEIN 7.4 g/dL (6.4-8.2)
[2020-05-21 10:04] LABS: % BANDS 2 % (0-9); % LYMPHS 20 % (24-48); % MONOS 16 % (0-10); % SEGS 62 % (35-66); ANISOCYTOSIS SLIGHT; PLT ESTIMATE ADEQUATE (ADEQUATE)
== END ==
LOC: ONCLAB 09:19
PROVIDERS: ATTEND Internal Medicine Hematology & Oncology
DX: C12 Malignant neoplasm of pyriform sinus (principal)
CPT/HCPCS: 36415; 80053; 85007; 85025

== ENCOUNTER → 2020-05-25 | Outpatient (CLI) | payer MEDICARE ==
[2020-05-25 09:32] LABS: CALCIUM 8.7 mg/dL (8.5-10.1); CREATININE 0.8 mg/dL (0.7-1.3); GFR 116.3; POTASSIUM 3.6 mmol/L (3.5-5.1)
[2020-05-25 09:36] LABS: BASO % 0 % (0-3); EOS # 0.1 x10^3/uL (0.0-0.7); EOS % 1 % (0-3); HEMATOCRIT 30.9 % (39.0-53.0); HEMOGLOBIN 10.4 g/dL (13.0-17.5); LYMPH # 0.5 x10^3/uL (1.0-4.8); LYMPH % 8 % (24-48); MEAN CORPUSCULAR HEMOGLOBIN 31 pg (25-35); MEAN CORPUSCULAR HGB CONC 34 g/dL (31-37); MEAN CORPUSCULAR VOLUME 91 fL (79-100); MONO # 0.9 x10^3/uL (0.0-1.1); MONO % 15 % (0-9); NEUT # 4.5 x10^3/uL (1.8-7.7); NEUT % 75 % (31-73); PLATELET COUNT 210 x10^3/uL (140-400); RED BLOOD COUNT 3.39 x10^6/uL (4.30-5.70); RED CELL DISTRIBUTION WIDTH 16.9 % (11.5-14.5)
[2020-05-25 09:38] LABS: ALBUMIN 2.7 g/dL (3.4-5.0); ALBUMIN/GLOBULIN RATIO 0.6 (1.0-1.7); TOTAL BILIRUBIN 0.4 mg/dL (0.2-1.0); TOTAL PROTEIN 7.4 g/dL (6.4-8.2)
[2020-05-25 10:36] LABS: % BANDS 4 % (0-9); % EOS 1 % (0-5); % LYMPHS 9 % (24-48); % METAS 1 % (0-0); % MONOS 20 % (0-10); % SEGS 65 % (35-66); PLT ESTIMATE ADEQUATE (ADEQUATE)
[2020-05-25 10:37] LABS: ANISOCYTOSIS PRESENT; POIKILOCYTOSIS PRESENT
== END ==
LOC: ONCLAB 08:52
PROVIDERS: ATTEND Physician Assistant
DX: C12 Malignant neoplasm of pyriform sinus (principal)
CPT/HCPCS: 36415; 80053; 85007; 85025

== ENCOUNTER → 2020-05-27 | Outpatient (CLI) | payer MEDICARE ==
[2020-05-27 10:02] LABS: BASO % 1 % (0-3); EOS # 0.1 x10^3/uL (0.0-0.7); EOS % 1 % (0-3); HEMATOCRIT 30.7 % (39.0-53.0); HEMOGLOBIN 10.8 g/dL (13.0-17.5); LYMPH # 0.5 x10^3/uL (1.0-4.8); LYMPH % 10 % (24-48); MEAN CORPUSCULAR HEMOGLOBIN 32 pg (25-35); MEAN CORPUSCULAR HGB CONC 35 g/dL (31-37); MEAN CORPUSCULAR VOLUME 90 fL (79-100); MONO # 0.9 x10^3/uL (0.0-1.1); MONO % 17 % (0-9); NEUT # 3.6 x10^3/uL (1.8-7.7); NEUT % 71 % (31-73); PLATELET COUNT 226 x10^3/uL (140-400); RED BLOOD COUNT 3.39 x10^6/uL (4.30-5.70); RED CELL DISTRIBUTION WIDTH 17.3 % (11.5-14.5)
[2020-05-27 10:15] LABS: CALCIUM 8.5 mg/dL (8.5-10.1); CREATININE 0.9 mg/dL (0.7-1.3); GFR 101.5; POTASSIUM 3.6 mmol/L (3.5-5.1)
[2020-05-27 10:23] LABS: ALBUMIN 2.5 g/dL (3.4-5.0); ALBUMIN/GLOBULIN RATIO 0.5 (1.0-1.7); TOTAL BILIRUBIN 0.3 mg/dL (0.2-1.0); TOTAL PROTEIN 7.1 g/dL (6.4-8.2)
== END ==
LOC: ONCLAB 09:25
PROVIDERS: ATTEND Internal Medicine Hematology & Oncology
DX: C12 Malignant neoplasm of pyriform sinus (principal)
CPT/HCPCS: 36415; 80053; 85025

== ENCOUNTER → 2020-06-03 | Outpatient (CLI) | payer MEDICARE ==
[2020-06-03 09:46] LABS: BASO % 1 % (0-3); EOS # 0.1 x10^3/uL (0.0-0.7); EOS % 2 % (0-3); HEMATOCRIT 30.6 % (39.0-53.0); HEMOGLOBIN 10.1 g/dL (13.0-17.5); LYMPH # 0.3 x10^3/uL (1.0-4.8); LYMPH % 9 % (24-48); MEAN CORPUSCULAR HEMOGLOBIN 30 pg (25-35); MEAN CORPUSCULAR HGB CONC 33 g/dL (31-37); MEAN CORPUSCULAR VOLUME 92 fL (79-100); MONO # 0.5 x10^3/uL (0.0-1.1); MONO % 15 % (0-9); NEUT # 2.7 x10^3/uL (1.8-7.7); NEUT % 74 % (31-73); PLATELET COUNT 204 x10^3/uL (140-400); RED BLOOD COUNT 3.33 x10^6/uL (4.30-5.70); RED CELL DISTRIBUTION WIDTH 17.6 % (11.5-14.5); WHITE BLOOD COUNT 3.7 x10^3/uL (4.0-11.0)
[2020-06-03 09:50] LABS: ALBUMIN 2.6 g/dL (3.4-5.0); ALBUMIN/GLOBULIN RATIO 0.5 (1.0-1.7); CALCIUM 8.4 mg/dL (8.5-10.1); CREATININE 0.8 mg/dL (0.7-1.3); GFR 116.3; POTASSIUM 3.9 mmol/L (3.5-5.1); TOTAL BILIRUBIN 0.4 mg/dL (0.2-1.0); TOTAL PROTEIN 7.4 g/dL (6.4-8.2)
[2020-06-03 11:19] LABS: % BANDS 3 % (0-9); % BASOS 1 % (0-3); % EOS 3 % (0-5); % LYMPHS 5 % (24-48); % METAS 1 % (0-0); % MONOS 27 % (0-10); % MYELOS 1 % (0-0); % SEGS 59 % (35-66)
[2020-06-03 11:30] LABS: ANISOCYTOSIS SLIGHT; PLT ESTIMATE ADEQUATE (ADEQUATE)
== END ==
LOC: ONCLAB 09:15
PROVIDERS: ATTEND Internal Medicine Hematology & Oncology
DX: C12 Malignant neoplasm of pyriform sinus (principal)
CPT/HCPCS: 36415; 80053; 85007; 85025

== ENCOUNTER → 2020-06-08 | Outpatient (CLI) | payer MEDICARE ==
[2020-06-08 12:24] LABS: BASO % 1 % (0-3); EOS % 1 % (0-3); HEMATOCRIT 31.7 % (39.0-53.0); HEMOGLOBIN 10.4 g/dL (13.0-17.5); LYMPH # 0.8 x10^3/uL (1.0-4.8); LYMPH % 21 % (24-48); MEAN CORPUSCULAR HEMOGLOBIN 30 pg (25-35); MEAN CORPUSCULAR HGB CONC 33 g/dL (31-37); MEAN CORPUSCULAR VOLUME 91 fL (79-100); MONO # 0.7 x10^3/uL (0.0-1.1); MONO % 19 % (0-9); NEUT # 2.2 x10^3/uL (1.8-7.7); NEUT % 58 % (31-73); PLATELET COUNT 249 x10^3/uL (140-400); RED CELL DISTRIBUTION WIDTH 17.7 % (11.5-14.5); WHITE BLOOD COUNT 3.8 x10^3/uL (4.0-11.0)
[2020-06-08 12:34] LABS: CALCIUM 8.9 mg/dL (8.5-10.1); CREATININE 1.3 mg/dL (0.7-1.3); GFR 66.4; POTASSIUM 3.9 mmol/L (3.5-5.1)
[2020-06-08 12:39] LABS: ALBUMIN 2.6 g/dL (3.4-5.0); ALBUMIN/GLOBULIN RATIO 0.5 (1.0-1.7); TOTAL BILIRUBIN 0.5 mg/dL (0.2-1.0); TOTAL PROTEIN 7.5 g/dL (6.4-8.2)
== END ==
LOC: ONCLAB 10:48
PROVIDERS: ATTEND Internal Medicine Hematology & Oncology
DX: C12 Malignant neoplasm of pyriform sinus (principal)
CPT/HCPCS: 36415; 80053; 85025

== ENCOUNTER → 2020-06-10 | Outpatient (CLI) | payer OTHER ==
[2020-06-10 14:42] LABS: BASO % 1 % (0-3); EOS % 2 % (0-3); HEMATOCRIT 29.8 % (39.0-53.0); HEMOGLOBIN 9.8 g/dL (13.0-17.5); LYMPH # 0.6 x10^3/uL (1.0-4.8); LYMPH % 24 % (24-48); MEAN CORPUSCULAR HEMOGLOBIN 30 pg (25-35); MEAN CORPUSCULAR HGB CONC 33 g/dL (31-37); MEAN CORPUSCULAR VOLUME 90 fL (79-100); MONO # 0.5 x10^3/uL (0.0-1.1); MONO % 21 % (0-9); NEUT # 1.3 x10^3/uL (1.8-7.7); NEUT % 52 % (31-73); PLATELET COUNT 262 x10^3/uL (140-400); RED BLOOD COUNT 3.31 x10^6/uL (4.30-5.70); RED CELL DISTRIBUTION WIDTH 17.8 % (11.5-14.5); WHITE BLOOD COUNT 2.5 x10^3/uL (4.0-11.0)
[2020-06-10 14:59] LABS: CALCIUM 8.5 mg/dL (8.5-10.1); CREATININE 0.9 mg/dL (0.7-1.3); GFR 101.5; POTASSIUM 3.7 mmol/L (3.5-5.1)
[2020-06-10 15:02] LABS: ALBUMIN 2.4 g/dL (3.4-5.0); ALBUMIN/GLOBULIN RATIO 0.5 (1.0-1.7); TOTAL BILIRUBIN 0.4 mg/dL (0.2-1.0); TOTAL PROTEIN 6.9 g/dL (6.4-8.2)
[2020-06-10 17:44] LABS: % BANDS 7 % (0-9); % BASOS 1 % (0-3); % EOS 2 % (0-5); % LYMPHS 19 % (24-48); % MONOS 17 % (0-10); % SEGS 54 % (35-66); PLT ESTIMATE ADEQUATE (ADEQUATE)
[2020-06-10 17:45] LABS: OVALOCYTES FEW; SCHISTOCYTES OCC
[2020-06-10 17:46] LABS: ANISOCYTOSIS SLIGHT
[2020-06-10 17:48] LABS: TOXIC GRANULATION SLIGHT
== END ==
LOC: ONCLAB 14:23
PROVIDERS: ATTEND Internal Medicine Hematology & Oncology
DX: C12 Malignant neoplasm of pyriform sinus (principal)
CPT/HCPCS: 36415; 80053; 85007; 85025

== ENCOUNTER → 2020-06-17 | Outpatient (CLI) | payer OTHER ==
[2020-06-17 12:47] LABS: BASO % 0 % (0-3); EOS # 0.1 x10^3/uL (0.0-0.7); EOS % 2 % (0-3); HEMATOCRIT 30.5 % (39.0-53.0); HEMOGLOBIN 10.3 g/dL (13.0-17.5); LYMPH # 1.1 x10^3/uL (1.0-4.8); LYMPH % 33 % (24-48); MEAN CORPUSCULAR HEMOGLOBIN 30 pg (25-35); MEAN CORPUSCULAR HGB CONC 34 g/dL (31-37); MEAN CORPUSCULAR VOLUME 90 fL (79-100); MONO # 0.5 x10^3/uL (0.0-1.1); MONO % 14 % (0-9); NEUT # 1.7 x10^3/uL (1.8-7.7); NEUT % 51 % (31-73); PLATELET COUNT 237 x10^3/uL (140-400); RED BLOOD COUNT 3.39 x10^6/uL (4.30-5.70); RED CELL DISTRIBUTION WIDTH 18.6 % (11.5-14.5); WHITE BLOOD COUNT 3.4 x10^3/uL (4.0-11.0)
[2020-06-17 13:00] LABS: CALCIUM 8.2 mg/dL (8.5-10.1); CREATININE 0.9 mg/dL (0.7-1.3); GFR 101.5; POTASSIUM 3.7 mmol/L (3.5-5.1)
[2020-06-17 13:06] LABS: ALBUMIN 2.4 g/dL (3.4-5.0); ALBUMIN/GLOBULIN RATIO 0.5 (1.0-1.7); TOTAL BILIRUBIN 0.3 mg/dL (0.2-1.0)
== END ==
LOC: ONCLAB 12:26
PROVIDERS: ATTEND Internal Medicine Hematology & Oncology
DX: C12 Malignant neoplasm of pyriform sinus (principal)
CPT/HCPCS: 36415; 80053; 85025

== ENCOUNTER → 2020-06-18 | Outpatient (CLI) | payer OTHER, MEDICAID ==
--- NOTE | 2020-06-18 09:56 | RAD ---
EXAMINATION: US DPLX VENOUS EXTREMITY UPPER RT, 06/18/2020 8:46 AM CLINICAL INDICATION: Right arm swelling COMPARISON: None Available. PROCEDURE: Multiple grayscale, color Doppler and spectral Doppler sonographic images of the right upp er extremity were obtained. FINDINGS: There is occlusive thrombus in the right subclavian vein around the head extending into one of the right brachial veins. Nonocclusive thrombus is seen in the right axillary vein. The basilic a nd cephalic veins are patent. Radial and ulnar veins are patent. Unable to evaluate the internal jugu lar vein due to a bandage on the patient's neck. IMPRESSION: Positive exam for acute deep venous thrombosis in the right subclavian and axillary veins and one of the brachial veins, around the PICC. FOR INTERNAL CODING PURPOSES Critical result: Findings discussed with by the blogs manager with ordering physician at 06/18/2020 at the time of the e xam. RESULT CODE: (C) Electronically signed by: Sujata Zamora MD (06/18/2020 9:54 AM) [id number]
== END ==
LOC: US 10:03
PROVIDERS: ATTEND Physician Assistant
DX: I82.621 Acute embolism and thrombosis of deep veins of right upper extremity (principal)
CPT/HCPCS: 93971

== ENCOUNTER → 2020-06-24 | Outpatient (CLI) | payer OTHER, MEDICAID ==
[2020-06-24 13:09] LABS: BASO % 2 % (0-3); EOS # 0.1 x10^3/uL (0.0-0.7); EOS % 3 % (0-3); HEMATOCRIT 31.4 % (39.0-53.0); HEMOGLOBIN 10.4 g/dL (13.0-17.5); LYMPH % 34 % (24-48); MEAN CORPUSCULAR HEMOGLOBIN 30 pg (25-35); MEAN CORPUSCULAR HGB CONC 33 g/dL (31-37); MEAN CORPUSCULAR VOLUME 91 fL (79-100); MONO # 0.4 x10^3/uL (0.0-1.1); MONO % 13 % (0-9); NEUT # 1.4 x10^3/uL (1.8-7.7); NEUT % 50 % (31-73); PLATELET COUNT 302 x10^3/uL (140-400); RED BLOOD COUNT 3.46 x10^6/uL (4.30-5.70); RED CELL DISTRIBUTION WIDTH 18.8 % (11.5-14.5); WHITE BLOOD COUNT 2.9 x10^3/uL (4.0-11.0)
[2020-06-24 13:21] LABS: CALCIUM 8.9 mg/dL (8.5-10.1); CREATININE 0.9 mg/dL (0.7-1.3); GFR 101.5; POTASSIUM 3.8 mmol/L (3.5-5.1)
[2020-06-24 13:26] LABS: ALBUMIN 2.5 g/dL (3.4-5.0); ALBUMIN/GLOBULIN RATIO 0.5 (1.0-1.7); TOTAL BILIRUBIN 0.3 mg/dL (0.2-1.0); TOTAL PROTEIN 7.7 g/dL (6.4-8.2)
== END ==
LOC: ONCLAB 12:36
PROVIDERS: ATTEND Internal Medicine Hematology & Oncology
DX: C12 Malignant neoplasm of pyriform sinus (principal)
CPT/HCPCS: 36415; 80053; 85025

== ENCOUNTER → 2020-07-30 | Outpatient (CLI) | payer OTHER, MEDICAID ==
[2020-07-30 10:15] LABS: BASO % 1 % (0-3); EOS # 0.1 x10^3/uL (0.0-0.7); EOS % 4 % (0-3); HEMATOCRIT 34.6 % (39.0-53.0); HEMOGLOBIN 11.4 g/dL (13.0-17.5); LYMPH # 1.1 x10^3/uL (1.0-4.8); LYMPH % 28 % (24-48); MEAN CORPUSCULAR HEMOGLOBIN 31 pg (25-35); MEAN CORPUSCULAR HGB CONC 33 g/dL (31-37); MEAN CORPUSCULAR VOLUME 95 fL (79-100); MONO # 0.5 x10^3/uL (0.0-1.1); MONO % 13 % (0-9); NEUT # 2.2 x10^3/uL (1.8-7.7); NEUT % 55 % (31-73); PLATELET COUNT 240 x10^3/uL (140-400); RED BLOOD COUNT 3.63 x10^6/uL (4.30-5.70); RED CELL DISTRIBUTION WIDTH 19.3 % (11.5-14.5); WHITE BLOOD COUNT 4.1 x10^3/uL (4.0-11.0)
[2020-07-30 10:23] LABS: CALCIUM 9.1 mg/dL (8.5-10.1); GFR 89.9
[2020-07-30 10:29] LABS: ALBUMIN 3.2 g/dL (3.4-5.0); ALBUMIN/GLOBULIN RATIO 0.6 (1.0-1.7); TOTAL BILIRUBIN 0.3 mg/dL (0.2-1.0); TOTAL PROTEIN 8.4 g/dL (6.4-8.2)
== END ==
LOC: ONCLAB 09:49
PROVIDERS: ATTEND Internal Medicine Hematology & Oncology
DX: C12 Malignant neoplasm of pyriform sinus (principal)
CPT/HCPCS: 36415; 80053; 85025

== ENCOUNTER → 2020-09-25 | Outpatient (CLI) | payer OTHER, MEDICAID ==
--- NOTE | 2020-09-28 10:27 | RAD ---
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 Chemotherapy 2 months ago. Radiation, u nsure when. History of gastric cancer post surgery 2004. Comparison: FDG PET/CTs, skull base to upper thighs to 02/22/2021. CT soft tissue neck with contrast 04/11/2020. Technique: Patient blood glucose at the time of injection is 96 mg/dL. The patient was administered 1 3.4 mCi of F-18 FDG intravenously. The patient rested quietly during a 60 minute uptake period. Then PET imaging from the skull base to the upper thighs was performed. A noncontrast CT was acquired over this same area. The CT is for attenuation correction and anatomic localization, it is not of diagnos tic quality and is not intended to diagnose disease independently of the PET. PQRS Compliance Statement: One or more of the following individualized dose reduction techniques were utilized for this examinat ion: 1. Automated exposure control 2. Adjustment of the mA and/or kV according to patient size 3. Use of iterative reconstruction technique Findings: Head and neck: FDG avid mass at the right piriform sinus is no longer identified. There is mild FDG uptake at the le jonathon of the piriform sinuses, SUVmax 3.8. There is slight soft tissue asymmetry inferior to the right piriform sinus, CT image 81. FDG avid right level adelaide mass is no longer identified. There is persistent soft tissue fullness wit h low level FDG uptake, SUVmax 2.6. FDG avid left level 2 cervical lymph node has resolved. Chest: There is no evidence of FDG-avid metastatic disease. Redemonstrated esophagectomy with gastric pull-through. There is centrilobular emphysema and respirat ory motion artifact. Abdomen and pelvis: There is no FDG-avid metastatic disease. No abnormal FDG uptake of the rectum seen. Musculoskeletal: There is no evidence of FDG-avid disease. There is photopenia of the cervical spine, likely sequela o f radiation. IMPRESSION: 1. There is mild FDG uptake at the level of the piriform sinuses with slight soft tissue asymmetry i nferior to the right piriform sinus. Recommend continued surveillance. 2. FDG avid bilateral level 2 cervical adenopathy has resolved. There is residual soft tissue fullne ss right level 2 with low-level FDG uptake equal to blood pool. 3. No evidence of FDG avid metastatic disease in the chest, abdomen, or pelvis. Electronically signed by: Sanjay Barone MD (09/28/2020 10:25 AM) [id number]
== END ==
LOC: PETSC 09:01
PROVIDERS: ATTEND Internal Medicine Hematology & Oncology
DX: C77.0 Secondary and unspecified malignant neoplasm of lymph nodes of head, face and neck (principal); C12 Malignant neoplasm of pyriform sinus
CPT/HCPCS: 78815; A9552

== ENCOUNTER → 2020-10-01 | Outpatient (CLI) | payer OTHER, MEDICAID ==
[2020-10-01 10:28] LABS: BASO # 0.1 x10^3/uL (0.0-0.2); BASO % 1 % (0-3); EOS # 0.2 x10^3/uL (0.0-0.7); EOS % 5 % (0-3); HEMATOCRIT 37.2 % (39.0-53.0); HEMOGLOBIN 12.4 g/dL (13.0-17.5); LYMPH # 1.3 x10^3/uL (1.0-4.8); LYMPH % 30 % (24-48); MEAN CORPUSCULAR HEMOGLOBIN 32 pg (25-35); MEAN CORPUSCULAR HGB CONC 33 g/dL (31-37); MEAN CORPUSCULAR VOLUME 95 fL (79-100); MONO # 0.4 x10^3/uL (0.0-1.1); MONO % 10 % (0-9); NEUT # 2.3 x10^3/uL (1.8-7.7); NEUT % 54 % (31-73); PLATELET COUNT 218 x10^3/uL (140-400); RED BLOOD COUNT 3.93 x10^6/uL (4.30-5.70); RED CELL DISTRIBUTION WIDTH 16.6 % (11.5-14.5); WHITE BLOOD COUNT 4.3 x10^3/uL (4.0-11.0)
[2020-10-01 10:42] LABS: CALCIUM 9.1 mg/dL (8.5-10.1); CREATININE 0.9 mg/dL (0.7-1.3); GFR 101.5; POTASSIUM 4.1 mmol/L (3.5-5.1)
[2020-10-01 10:46] LABS: ALBUMIN 3.1 g/dL (3.4-5.0); ALBUMIN/GLOBULIN RATIO 0.7 (1.0-1.7); TOTAL BILIRUBIN 0.1 mg/dL (0.2-1.0); TOTAL PROTEIN 7.6 g/dL (6.4-8.2)
== END ==
LOC: ONCLAB 09:59
PROVIDERS: ATTEND Physician Assistant
DX: C12 Malignant neoplasm of pyriform sinus (principal)
CPT/HCPCS: 36415; 80053; 85025

== ENCOUNTER → 2020-11-24 | Outpatient (CLI) | payer OTHER, MEDICAID ==
[~2020-11-24] MED LIST changes: +IOHEXOL 300 MG/ML 100ML VIAL. IV ONE
--- NOTE | 2020-11-24 14:00 | RAD ---
PQRS Compliance Statement: One or more of the following individualized dose reduction techniques were utilized for this examinat ion: 1. Automated exposure control 2. Adjustment of the mA and/or kV according to patient size 3. Use of iterative reconstruction technique CT NECK SOFT TISSUE WITH IV CONTRAST 11/24/2020 9:31 AM Indication: Carcinoma the pharynx COMPARISON: CT neck to 621, PET/CT 09/25/2020 TECHNIQUE: Multiple axial CT images of the neck were obtained after the intravenous administration of Omnipaque 300. Coronal and sagittal reformats are provided. FINDINGS: No suspicious abnormality identified involving the visualized portions of the brain parenchyma and po sterior fossa. The skull base is normal. The visualized paranasal sinuses are well aerated. Orbital c ontents appear normal. The sella turcica and cavernous sinus regions appear intact. The mastoid air c ells are well aerated. The fossa of Rosenmuller is normal. Nasopharynx is normal in appearance. Mild atrophy of the parotid and submandibular glands. The parapharyngeal spaces are normal. Ammonia Print Operator spaces normal in appearan ce. Oral cavity, floor of mouth and sublingual space appear normal.. There is mucosal edema involving the oropharynx and hypopharynx with involvement of the epiglottis, v allecula and piriform sinuses. There is persistent asymmetric nodular thickening along the right arye piglottic fold and supraglottitis measuring 1.2 x 0.7 cm (series 2, image 60). The true cords are danny sely apposed, limiting evaluation. Paraglottic fat appears preserved. The vallecula is partly effaced secondary to edema of the epiglottis. Piriform sinuses are effaced secondary to mucosal edema. Laryn geal cartilages are intact. The thyroid gland is normal in appearance. Dense calcified and noncalcified atheromatous plaque identified at the carotid bifurcations. There is 60 percent stenosis of the proximal left cervical internal carotid artery secondary to calcified and noncalcified plaque. Ill-definition of fat planes deep to the right sternal carotid mastoid muscle m ay reflect treated lymphadenopathy. Previously seen enlarged and abnormally enhancing lymphadenopathy within the bilateral cervical distribution is not visualized on the current examination. The perivertebral space contents are normal. The supraclavicular regions appear intact. The visualiz ed mediastinum is normal. Moderate centrilobular pulmonary emphysema. No significant osseous abnormal ity. IMPRESSION: 1. Nodular thickening along the inferior margin of the right aryepiglottic fold within the right supr aglottis could reflect residual disease or treatment effect. Visualization could be of benefit. 2. Mucosal edema identified within the inferior oropharynx, hypopharynx and supraglottitis. 3. No new or enlarging cervical lymphadenopathy. Previously seen lymphadenopathy has resolved. Ill-de finition of fat planes deep to the right cervical carotid mastoid may reflect posttreatment related c hanges. Attention on follow-up exams is recommended. 4. 60 percent stenosis of proximal left cervical internal carotid artery secondary to calcified and n oncalcified atheromatous plaque. Electronically signed by: Nano Schmitz MD (11/24/2020 10:24 AM) [id number]
== END ==
LOC: CT 09:37
PROVIDERS: ATTEND Internal Medicine Hematology & Oncology
DX: C12 Malignant neoplasm of pyriform sinus (principal); J04.30 Supraglottitis, unspecified, without obstruction; J43.2 Centrilobular emphysema; I65.21 Occlusion and stenosis of right carotid artery
CPT/HCPCS: 70491; Q9967